=== PATIENT | male | born 1965 | race Hispanic/Latino ===

== ENCOUNTER → 2018-01-02 | Outpatient (CLI) | payer OTHER ==
--- NOTE | 2018-01-02 11:59 | Diagnostic Imaging Report ---
Exam: Brain MRI without IV contrast History: Trauma, fall, [place] Comparison studies: None Technique: Axial DWI, axial coronal T2 flair, axial sagittal T2 FS, axial T1 FLAIR and axial T2*GRE Intravenous contrast: None Findings: Scalp: Normal in signal. No masses. Bone marrow: Normal in signal intensity. Brain sulci: Appropriate for age. Ventricles: Normal in size. No hydrocephalus. Extra axial spaces: No mass, no fluid collection. Parenchyma: No abnormal signal intensities. No masses, hemorrhage, acute or chronic vascular insults. Suprasellar region: No abnormalities. Craniocervical junction: Patent foramen magnum. No Chiari malformation . Vessels: Normal flow-voids in the arteries and sinuses. IMPRESSION: No intracranial abnormalities. Signed by: Dr. Sandeep Spain M.D. on 01/02/2018 11:55 AM
--- NOTE | 2018-01-02 12:09 | Diagnostic Imaging Report ---
Exam: Lumbar spine MRI without IV contrast Back pain History: Back pain Comparison studies: None Technique: Sagittal and axial T2 , sagittal T1 and IR, axial spin density oblique an coronal T2. Intravenous contrast: None Findings: Number of lumbar vertebral bodies: 5. Alignment: Normal lordosis. No scoliosis. Soft tissues: No T2 hyperintense inflammatory changes. Paraspinal muscles: No signal abnormalities. Well-preserved. No atrophic changes Lower thoracic cord: Normal in signal and morphology. The tip of the conus is at L2. Cauda equina: No masses. No arachnoiditis. Vertebrae: No compression fractures, infection or neoplasm. Degenerative changes: L1-L2: No abnormalities. L2-L3: Disc bulge with small central disc extrusion which has a superior migrated within the ventral epidural space posterior to the L2 vertebral body does not result in canal stenosis or nerve root impingement. L3-L4: Mild loss of T2 disc signal. Indents the thecal sac but does not result in significant canal or foraminal stenosis. L4-L5: Mildly degenerated disc with mild loss of disc height and loss of T2 disc signal. Mild reactive edema along the endplates on the right. Disc bulge asymmetric to the right and facet arthrosis with mild right foraminal stenosis. In mild canal stenosis. No significant left foraminal stenosis. L5-S1: Mild degenerated disc with mild loss of disc height posteriorly and loss of T2 disc signal. Disc bulge with small central disc protrusion with annular fissure does not result in canal or foraminal stenosis. Disc abuts but does not compress the bilateral S1 nerve roots. IMPRESSION: 1. No fracture or acute post traumatic abnormalities. 2. Mildly degenerated disks from L2 to S1. 3. Small L2-L3 disc extrusion and small L5-S1 disc protrusion with annular fissure do not result significant canal stenosis or nerve root impingement. 4. Mild reactive degenerative endplate edema with mild degenerative canal stenosis and mild right foraminal stenosis at L4-5. Signed by: Dr. Sandeep Spain M.D. on 01/02/2018 12:06 PM
== END ==
LOC: MRI 07:47
PROVIDERS: ATTEND Family Medicine
DX: S09.90XA Unspecified injury of head, initial encounter (principal); M54.5 Low back pain
CPT/HCPCS: 70551; 72148